=== PATIENT | female | born 1955 | race Caucasian/White ===

== ENCOUNTER 2018-10-30 15:13 | Emergency (ER) | payer OTHER ==
[~2018-10-30] VITALS: Ht 157.5 cm; Wt 68.2 kg
[2018-10-30 16:01] VITALS: BP 140/90
== END 2018-10-30 15:58 | disposition home or self-care (01) ==
LOC: ER 15:14
DX: S60.812A Abrasion of left wrist, initial encounter (principal); W26.0XXA Contact with knife, initial encounter; Y93.89 Activity, other specified; Y92.89 Other specified places as the place of occurrence of the external cause; Y99.8 Other external cause status
CPT/HCPCS: 99281; 99283